=== PATIENT | female | born 1950 | race Caucasian/White ===

== ENCOUNTER 2017-04-04 12:29 | Emergency (ER) | payer MEDICARE, OTHER ==
[~2017-04-04] VITALS: Ht 157.5 cm; Wt 45.0 kg
[~2017-04-04 12:29] MED LIST: BUTA1CAP PO; FENT50DI T-DERMAL; NEOM500T PO; ONDA8TAB8; PERC10TA27 PO; XANA1TAB6 PO
[2017-04-04 12:36] VITALS: BP 193/72; PULSE 99; RESP 14; TEMP 99.2
[2017-04-04] MEDS ORDERED: SODIUM CHLOR 0.9% 1000 ML INJ 1,000 ML IV SCH (12:39)
[2017-04-04] MEDS ORDERED: XANA1TAB2 PO (12:44)
[2017-04-04] MEDS ORDERED: BUTA1CAP PO (12:44)
[2017-04-04] MEDS ORDERED: PERC10TA27 PO (12:48)
[2017-04-04 12:49] VITALS: O2SAT 100
[2017-04-04 13:27] LABS: AUTOMATED NEUTROPHIL # 5.1 TH/MM3 (1.8-7.7); BASOPHIL % 0.4 % (0.0-2.0); HEMATOCRIT 33.8 % (35.0-46.0); HEMOGLOBIN 10.9 GM/DL (11.6-15.3); LYMPH % 13.9 % (9.0-44.0); LYMPHOCYTE # 0.9 TH/MM3 (1.0-4.8); MEAN CELL VOLUME 90.9 FL (80.0-100.0); MEAN CORPUSCULAR HEMOGLOBIN 29.4 PG (27.0-34.0); MEAN CORPUSCULAR HGB CONC 32.4 % (32.0-36.0); MEAN PLATELET VOLUME 6.7 FL (7.0-11.0); MONO % 6.5 % (0.0-8.0); MONOCYTE # 0.4 TH/MM3 (0-0.9); NEUT % 79.2 % (16.0-70.0); PLATELET COUNT 441 TH/MM3 (150-450); RED BLOOD COUNT 3.71 MIL/MM3 (4.00-5.30); RED CELL DISTRIBUTION WIDTH 16.2 % (11.6-17.2); WHITE BLOOD COUNT 6.4 TH/MM3 (4.0-11.0)
[2017-04-04 13:32] LABS: BACTERIA, URINE RARE /hpf; BILIRUBIN, URINE NEG (NEG); BLOOD, URINE SMALL (NEG); GLUCOSE,URINE NEG (NEG); KETONE, URINE 150 mg/dL (NEG); MUCUS URINE FEW /lpf (OCC); NITRITE,URINE NEG (NEG); PH, URINE 5.5 (5.0-8.5); SQUAMOUS EPITHELIAL CELL URINE 1 /hpf (0-5); TRANSITIONAL EPI CELLS, URINE <1 /hpf; URINE COLOR YELLOW (YELLW/STRAW); URINE LEUKOCYTE ESTERASE TRACE (NEG)
--- NOTE | 2017-04-04 13:34 | RADRPT ---
EXAM DATE/TIME: 04/04/2017 13:00 [facility] COMPARISON: No previous studies available for comparison. INDICATIONS : Shortness of breath. MEDICAL HISTORY : None. SURGICAL HISTORY : None. ENCOUNTER: Initial ACUITY: 1 month PAIN SCORE: 7/10 LOCATION: Bilateral chest FINDINGS: A single view of the chest demonstrates the lungs to be symmetrically aerated without evidence of mas s, infiltrate or effusion. A calcified granuloma within the left upper lobe. Calcified lymph nodes wi thin the left hilum. The cardiomediastinal contours are unremarkable. Osseous structures are intact. CONCLUSION: No acute disease. Prior granulomatous disease. Brandyn Rao Jr., MD on April 04, 2017 at 13:32 Board Certified Radiologist. This report was verified electronically.
[2017-04-04 13:42] VITALS: BP 136/58; PULSE 93
--- NOTE | 2017-04-04 13:43 | PD ---
HPI Chief Complaint: General Weakness Time Seen by Provider: 12:37 Travel History International Travel<30 days: No Contact w/Intl Traveler<30days: No Traveled to known affect area: No History of Present Illness HPI 66-year-old female that presents to the ED for evaluation of generalized weakness. Patient came by ambulance for evaluation of this. Per ambulance report apparently patient walked to the fire station to get help because she felt that she was weak and dehydrated. She complains of pain everywhere. She states that most of the pain appears to be in the back and abdomen and this is what the reason she takes chronic pain meds. Per patient herself she's been out of her medications since February. She cannot really tell me why she is off of them. She tells me that somebody might have taken them. She denies any head injury or trauma. She denies any falls. She states that for the most she feels weak and she feels like she has some nausea and vomiting. She has not seen her doctor for unclear reasons. She has an allergy to codeine. Per patient and her discomfort is 6 out of 10 on the lower abdomen. Per patient this is chronic for her. She denies any urinary or bowel movement issues. No chest pain or shortness of breath. Per patient she has not taken anything for this. She does have a history of chronic pain as well as colon cancer and anxiety. She denies any numbness, tingling, weakness. She is able to ambulate with no obvious difficulty. PFSH Past Medical History Autoimmune Disease: No Blood Disorders: No Anxiety: Yes Depression: Yes Cardiovascular Problems: Yes High Cholesterol: Yes Diminished Hearing: No Endocrine: No Genitourinary: No Musculoskeletal: No Neurologic: No Psychiatric: Yes Respiratory: Yes (ASTHMA ) Renal Failure: Yes (KIDNEY REMOVAL) Menopausal: Yes : 2 Para: 1 Miscarriage: 1 Past Surgical History Abdominal Surgery: Yes (JOANNA,APPENDECTOMY) Appendectomy: Yes Genitourinary Surgery: Yes (KIDNEY REMOVAL) Gynecologic Surgery: Yes (OVARIES REMOVED) Hysterectomy: Yes Social History Alcohol Use: Yes (IN PAST) Tobacco Use: No Substance Use: Yes Allergies-Medications (Allergen,Severity, Reaction): Coded Allergies: codeine (Unverified Allergy, Severe, 04/04/17) Reported Meds & Prescriptions Reported Meds & Active Scripts Active Zofran Odt (Ondansetron Odt) 4 Mg Tab 4 Mg SL Q6HR PRN Diclofenac Sodium DR (Diclofenac Sodium) 75 Mg Tabdr 75 Mg PO BID PRN Keflex (Cephalexin) 500 Mg Cap 500 Mg PO Q12H 10 Days Reported Percocet (Oxycodone-Acetaminophen) 10-325 mg Tab 1 Tab PO Q6H PRN Fioricet (Kgisoqgspu-Puedxijjcosfa-Wqeonfat) 50-300-40 Mg Cap 1 Cap PO Q4H PRN Xanax (Alprazolam) 1 Mg Tab 1 Mg PO BID PRN Review of Systems Except as stated in HPI: all other systems reviewed are Neg Physical Exam Narrative GENERAL: SKIN: Warm and dry. HEAD: Atraumatic. Normocephalic. EYES: Pupils equal and round. No scleral icterus. No injection or drainage. ENT: No nasal bleeding or discharge. Mucous membranes pink and moist. Tongue is midline. No uvula deviation. NECK: Trachea midline. No JVD. CARDIOVASCULAR: Regular rate and rhythm. No murmurs, S3, S4. RESPIRATORY: No accessory muscle use. Clear to auscultation. Breath sounds equal bilaterally. GASTROINTESTINAL: Abdomen soft, non-tender, nondistended. Hepatic and splenic margins not palpable. MUSCULOSKELETAL: Extremities without clubbing, cyanosis, or edema. No obvious deformities. Full range of motion of the upper and lower extremities bilaterally. 2+ pulses bilaterally. Ambulating with no issues. NEUROLOGICAL: Awake and alert. No obvious cranial nerve deficits. Motor grossly within normal limits. Five out of 5 muscle strength in the arms and legs. Normal speech. PSYCHIATRIC: Appropriate mood and affect; insight and judgment normal. Data Data Last Documented VS Vital Signs Date Time Temp Pulse Resp B/P (MAP) Pulse Ox O2 Delivery O2 Flow Rate FiO2 04/04/17 15:50 83 20 100 Room Air 04/04/17 12:36 99.2 Orders Orders Electrocardiogram (04/04/17 12:37) Complete Blood Count With Diff (04/04/17 12:37) Comprehensive Metabolic Panel (04/04/17 12:37) Ckmb (Isoenzyme) Profile (04/04/17 12:37) Troponin I (04/04/17 12:37) Lipase (04/04/17 12:37) Urinalysis - C+S If Indicated (04/04/17 12:37) Magnesium (Mg) (04/04/17 12:37) Thyroid Stimulating Hormone (04/04/17 12:37) Iv Access Insert/Monitor (04/04/17 12:37) Ecg Monitoring (04/04/17 12:37) Oximetry (04/04/17 12:37) Lactic Acid (04/04/17 12:39) Sodium Chlor 0.9% 1000 Ml Inj (Ns 1000 M (04/04/17 12:39) Chest, Single Ap (04/04/17 12:42) Urine Culture (04/04/17 13:05) Drug Screen, Random Urine (04/04/17 13:44) CKMB (04/04/17 13:00) CKMB% (04/04/17 13:00) Ct Abd/Pel W Iv Contrast(Rout) (04/04/17 ) Ketorolac Inj (Toradol Inj) (04/04/17 14:30) Iohexol 350 Inj (Omnipaque 350 Inj) (04/04/17 15:11) Ct Abd/Pel W Iv Contrast(Rout) (04/04/17 15:14) Ceftriaxone Inj (Rocephin Inj) (04/04/17 15:30) Labs Laboratory Tests Test 04/04/17 13:00 04/04/17 13:05 White Blood Count 6.4 TH/MM3 Red Blood Count 3.71 MIL/MM3 Hemoglobin 10.9 GM/DL Hematocrit 33.8 % Mean Corpuscular Volume 90.9 FL Mean Corpuscular Hemoglobin 29.4 PG Mean Corpuscular Hemoglobin Concent 32.4 % Red Cell Distribution Width 16.2 % Platelet Count 441 TH/MM3 Mean Platelet Volume 6.7 FL Neutrophils (%) (Auto) 79.2 % Lymphocytes (%) (Auto) 13.9 % Monocytes (%) (Auto) 6.5 % Eosinophils (%) (Auto) 0.0 % Basophils (%) (Auto) 0.4 % Neutrophils # (Auto) 5.1 TH/MM3 Lymphocytes # (Auto) 0.9 TH/MM3 Monocytes # (Auto) 0.4 TH/MM3 Eosinophils # (Auto) 0.0 TH/MM3 Basophils # (Auto) 0.0 TH/MM3 CBC Comment DIFF FINAL Differential Comment Blood Urea Nitrogen 17 MG/DL Creatinine 0.57 MG/DL Random Glucose 93 MG/DL Total Protein 8.3 GM/DL Albumin 4.4 GM/DL Calcium Level 8.8 MG/DL Magnesium Level 2.4 MG/DL Alkaline Phosphatase 113 U/L Aspartate Amino Transf (AST/SGOT) 58 U/L Alanine Aminotransferase (ALT/SGPT) 28 U/L Total Bilirubin 0.7 MG/DL Sodium Level 136 MEQ/L Potassium Level 4.3 MEQ/L Chloride Level 101 MEQ/L Carbon Dioxide Level 24.3 MEQ/L Anion Gap 11 MEQ/L Estimat Glomerular Filtration Rate 106 ML/MIN Lactic Acid Level 1.3 mmol/L Total Creatine Kinase 167 U/L Creatine Kinase MB 3.2 NG/ML Troponin I LESS THAN 0.02 NG/ML Lipase 221 U/L Thyroid Stimulating Hormone 3rd Gen 0.208 uIU/ML Urine Color YELLOW Urine Turbidity CLEAR Urine pH 5.5 Urine Specific Waterproof 1.027 Urine Protein 30 mg/dL Urine Glucose (UA) NEG mg/dL Urine Ketones 150 mg/dL Urine Occult Blood SMALL Urine Nitrite NEG Urine Bilirubin NEG Urine Urobilinogen 2.0 MG/DL Urine Leukocyte Esterase TRACE Urine RBC 3 /hpf Urine WBC 4 /hpf Urine Squamous Epithelial Cells 1 /hpf Urine Transitional Epithelial Cells <1 /hpf Urine Bacteria RARE /hpf Urine Mucus FEW /lpf Microscopic Urinalysis Comment CATH-CULTURE IND Urine Opiates Screen NEG Urine Barbiturates Screen NEG Urine Amphetamines Screen NEG Urine Benzodiazepines Screen NEG Urine Cocaine Screen NEG Urine Cannabinoids Screen NEG MDM Medical Decision Making Medical Screen Exam Complete: Yes Emergency Medical Condition: Yes Medical Record Reviewed: Yes Interpretation(s) CBC & BMP Diagram 04/04/17 13:00 Total Protein 8.3 H, Albumin 4.4, Calcium Level 8.8, Magnesium Level 2.4, Alkaline Phosphatase 113, Aspartate Amino Transf (AST/SGOT) 58 H, Alanine Aminotransferase (ALT/SGPT) 28, Total Bilirubin 0.7 tox negative UA shows UTI Last Impressions Abdomen/Pelvis CT 04/04/17 1514 Signed Impressions: Service Date/Time: Tuesday, April 04, 2017 15:07 - CONCLUSION: 1. No acute abnormality to explain the patient's pain. 2. Prior left nephrectomy. Brandyn Rao Jr., MD Chest X-Ray 04/04/17 1242 Signed Impressions: Service Date/Time: Tuesday, April 04, 2017 13:00 - CONCLUSION: No acute disease. Prior granulomatous disease. Brandyn Rao Jr., MD EKG shows sinus rhythm with no sign of acute ischemia or arrhythmia. Read by me and attending. Troponin and CK-MB negative. Differential Diagnosis Generalize weakness versus malaise versus sepsis versus UTI versus acute on chronic pain versus chronic pain versus opiate withdrawal versus narcotic withdrawal versus malingering Narrative Course 66-year-old female that presents to the ED for evaluation of generalized weakness. Patient was properly examined and was found to have no signs of acute medical distress at this time. She does appear to have lower back pain and some abdominal pain but she's not overly tender on exam. She states that she's been out of her medications which include narcotics. I did review [facility] on the patient and per records she got fell a prescription for alprazolam 1 mg, Percocet, fentanyl patch on the March 13 with a 30 day supply. When asked what happened to the medications she states that somebody might have taken them. Again she is not very clear. She does have a history of psychiatric illness and I suspect this might be part of the reason for patient being here. At this time labs and imaging were ordered. She was given IV fluids as she does appear to be somewhat dehydrated. No signs of trauma. She does complain of some dysuria. Urine was ordered as well. Did order a drug screen to verify patient has been taking any of her narcotic medications. Labs and imaging came back essentially unremarkable. She does appear to have a possible UTI. Her tox screen was actually negative. Unclear if patient is taking her medications and has taken too many before. I believe that this might be some withdrawal symptoms from not been on her medications. She does appear to be well. My attending Dr. Cloud was made aware of all findings and agrees with plan. Patient will be started on ceftriaxone here for her UTI. She will be sent home with Zofran, diclofenac sodium and Keflex. Told to follow closely with PCP. See ED worsening symptoms. She will have to follow with her doctor to get her medications refilled. Diagnosis Primary Impression: UTI (urinary tract infection) Qualified Codes: N30.01 - Acute cystitis with hematuria Additional Impression: Weakness Patient Instructions: General Instructions Additional Instructions: Take medications as prescribed. Drink plenty of fluids. Follow with your doctor this week for further evaluation and refill of your pain medications. See ED for worsening symptoms. Follow with PCP. Med/Other Pt SpecificInfo: Prescription(s) given Scripts Ondansetron Odt (Zofran Odt) 4 Mg Tab 4 MG SL Q6HR Y for Nausea/Vomiting, #20 TAB 0 Refills Prov: Lupe Woodson MD 04/04/[address] (Diclofenac Sodium DR) 75 Mg Tabdr 75 MG PO BID Y for PAIN SCALE 1 TO 10, #20 TAB 0 Refills Prov: Lupe Woodson MD 04/04/17 Cephalexin (Keflex) 500 Mg Cap 500 MG PO Q12H for Infection for 10 Days, #20 CAP 0 Refills Prov: Lupe Woodson MD 04/04/17 Disposition: 01 DISCHARGE HOME Condition: Stable Bill Nur Apr 04, 2017 13:43
[2017-04-04 14:04] LABS: ALBUMIN 4.4 GM/DL (3.4-5.0); ALKALINE PHOSPHATASE 113 U/L (45-117); ALT (GPT) 28 U/L (10-53); AST (GOT) 58 U/L (15-37); BICARBONATE 24.3 MEQ/L (21.0-32.0); BLOOD UREA NITROGEN 17 MG/DL (7-18); CALCIUM 8.8 MG/DL (8.5-10.1); CHLORIDE 101 MEQ/L (98-107); CREATININE 0.57 MG/DL (0.50-1.00); GLOMERULAR FILTRATION RATE 106 ML/MIN (>89); GLUCOSE,RANDOM 93 MG/DL (74-106); LIPASE 221 U/L (73-393); MAGNESIUM 2.4 MG/DL (1.5-2.5); SODIUM (NA) 136 MEQ/L (136-145); TOTAL BILIRUBIN ADULT 0.7 MG/DL (0.2-1.0); TOTAL PROTEIN 8.3 GM/DL (6.4-8.2); TROPONIN I LESS THAN 0.02 NG/ML (0.02-0.05)
[2017-04-04] MEDS ORDERED: KETOROLAC TROMETHAMINE 30 MG/ML (IVP) VIAL IV PUSH ONE (14:30)
[2017-04-04] MEDS ORDERED: IOHEXOL 350 MG/ML 10 ML VIAL (for RAD DIAG) IVCONTRAST ONE (15:11)
[2017-04-04] MEDS ORDERED: cefTRIAXone INJ 1,000 MG in SODIUM CHLORIDE 0.9% INJ 100 ML IV ONE (15:30)
--- NOTE | 2017-04-04 15:41 | RADRPT ---
EXAM DATE/TIME: 04/04/2017 15:07 [facility] COMPARISON: No previous studies available for comparison. INDICATIONS : Back and abdominal pain today. IV CONTRAST: 75 cc Omnipaque 350 (iohexol) IV ORAL CONTRAST: No oral contrast ingested. RADIATION DOSE: 4.65 CTDIvol (mGy) MEDICAL HISTORY : Cardiovascular disease. SURGICAL HISTORY : Hysterectomy. Appendectomy.Nephrectomy, left. ENCOUNTER: Initial ACUITY: 1 day PAIN SCALE: 4/10 LOCATION: Bilateral abdomen TECHNIQUE: Volumetric scanning of the abdomen and pelvis was performed. Using automated exposure control and ad justment of the mA and/or kV according to patient size, radiation dose was kept as low as reasonably achievable to obtain optimal diagnostic quality images. DICOM format image data is available electro nically for review and comparison. FINDINGS: LOWER LUNGS: The visualized lower lungs are clear. LIVER: Homogeneous density without lesion. There is no dilation of the biliary tree. No calcified gallston es. SPLEEN: Normal size without lesion. PANCREAS: Within normal limits. KIDNEYS: The left kidney is surgically absent. No mass or fluid collection within the surgical bed. The right kidney is normal in size and shape. No hydronephrosis. No mass. A phlebolith is seen involving the ri ght gonadal vein just lateral to the proximal ureter. ADRENAL GLANDS: Within normal limits. VASCULAR: There is no aortic aneurysm. BOWEL/MESENTERY: The stomach, small bowel, and colon demonstrate no acute abnormality. There is no free intraperitone al air or fluid. Surgical clips seen involving the distal descending colon. Scattered colonic diverti culi within the sigmoid colon. No acute inflammation. ABDOMINAL WALL: Within normal limits. RETROPERITONEUM: There is no lymphadenopathy. BLADDER: No wall thickening or mass. REPRODUCTIVE: Within normal limits. INGUINAL: There is no lymphadenopathy or hernia. MUSCULOSKELETAL: Within normal limits for patient age. CONCLUSION: 1. No acute abnormality to explain the patient's pain. 2. Prior left nephrectomy. Brandyn Rao Jr., MD on April 04, 2017 at 15:37 Board Certified Radiologist. This report was verified electronically.
[2017-04-04 15:50] VITALS: PULSE 83; RESP 20; O2SAT 100
[2017-04-04] MEDS ORDERED: CEPH-460 PO (15:50)
[2017-04-04] MEDS ORDERED: ZOFR4TAB3 SL (15:50)
[2017-04-04] MEDS ORDERED: DICL75TA PO (15:50)
[2017-04-04 16:06] VITALS: RESP 16
--- NOTE | 2017-04-04 16:27 | EKG ---
Date Performed: 04/04/2017 Time Performed: 12:45:35 PTAGE: 66 years EKG: Sinus rhythm NORMAL ECG INTERPRETATION BASED ON A DEFAULT AGE OF 40 YEARS PREVIOUS TRACING : 08/14/2004 09.07 Compared to prior tracing no significant change DOCTOR: Lina Branch Interpretating Date/Time 04/04/2017 16:26:33
== END 2017-04-04 18:24 | disposition home or self-care (01) ==
LOC: NEPC 12:29
DX: N30.01 Acute cystitis with hematuria (principal); R53.1 Weakness; M54.9 Dorsalgia, unspecified; G89.29 Other chronic pain; R11.2 Nausea with vomiting, unspecified; B96.20 Unspecified Escherichia coli [E. coli] as the cause of diseases classified elsewhere; E78.00 Pure hypercholesterolemia, unspecified; N19 Unspecified kidney failure; Z86.59 Personal history of other mental and behavioral disorders; Z86.79 Personal history of other diseases of the circulatory system; Z87.09 Personal history of other diseases of the respiratory system; Z85.038 Personal history of other malignant neoplasm of large intestine; Z79.899 Other long term (current) drug therapy
CPT/HCPCS: 71010; 74177; 80053; 80307; 81001; 82550; 82552; 83605; 83690; 83735; 84443; 84484; 85025; 87077; 87086; 87186; 93005; 96361; 96365; 96375; 99285; J0696; J1885; J7030; Q9967